=== PATIENT | female | born 1975 | race Hispanic/Latino ===

== ENCOUNTER 2017-10-12 21:57 | Emergency (ER) | payer SELFPAY ==
--- NOTE | 2017-10-12 22:41 | CT ---
CT OF THE BRAIN WITHOUT CONTRAST 10/12/17 COMPARISON: None. HISTORY: Headache and shortness of breath. TECHNIQUE: Multiple contiguous axial images were obtained in a CT of the brain without contrast. FINDINGS: The brain is normal in morphology and attenuation without focal lesions or confluent areas of infarct ion. There is no evidence of hydrocephalus, intracranial hemorrhage or extra-axial fluid collection. The calvarium and overlying soft tissues are unremarkable. The visualized paranasal sinuses and masto id air cells are well aerated. IMPRESSION: No evidence of acute intracranial abnormality. POS: [facility]
[2017-10-12 22:58] LABS: ALT (SGPT) 21 U/L (8-55); AST (SGOT) 16 U/L (5-34); Albumin 4.2 g/dL (3.5-5.0); Alkaline Phosphatase 97 U/L (40-150); Anion Gap 13 mmol/L (10-20); BUN (Urea Nitrogen) 11 mg/dL (7.0-18.7); Bilirubin, Total 0.3 mg/dL (0.2-1.2); Calc. Creatinine Clearance 0 mL/min (70-130); Calcium 9.3 mg/dL (7.8-10.44); Carbon Dioxide 24 mmol/L (22-29); Chloride 105 mmol/L (98-107); Estimated GFR-MDRD 77; Globulin 3.6 g/dL (2.4-3.5); Glucose 102 mg/dL (70-105); Potassium 3.7 mmol/L (3.5-5.1); Protein, Total 7.8 g/dL (6.0-8.3); Sodium 138 mmol/L (136-145)
[2017-10-12 23:08] LABS: CKMB 0.8 ng/mL (0-6.6); Troponin I Less than 0.010 ng/mL (< 0.028)
[2017-10-12 23:11] LABS: #Eosinphils 0.2 thou/uL (0.0-0.7); #Lymphocytes 2.2 thou/uL (1.20-3.40); #Monocytes 0.8 thou/uL (0.11-0.59); #Neutrophils 5.8 thou/uL (1.40-6.50); %Basophils 0.5 % (0.0-1.0); %Lymphocytes 23.9 % (21.0-51.0); %Monocytes 9.2 % (0.0-10.0); %Neutrophils 64.5 % (42.0-75.0); Hemoglobin 10.7 g/dL (12.0-16.0); MDiff Complete? YES; Mean Corpuscular HGB CONC 31.6 g/dL (32.0-36.0); Mean Corpuscular Hemoglobin 23.7 pg (27.0-31.0); Mean Platelet Volume 7.2 fL (7.4-10.4); Microcytosis SLIGHT = 6-15 cells (100X) (0-5/hpf); PLT Morphology Comment Appears Adequate; Platelet Count 339 thou/uL (130-400); RBC Distribution Width 15.4 % (11.5-14.5); Red Blood Cell (RBC) Count 4.51 mill/uL (4.20-5.40)
[2017-10-12] MEDS ORDERED: diphenhydrAMINE 50 MG/ML VIAL ONE (23:27)
[2017-10-12] MEDS ORDERED: Metoclopramide HCl 10 MG/2 ML VIAL ONE (23:27)
== END 2017-10-13 01:07 | disposition home or self-care (01) ==
LOC: ERS 21:57
DX: R51 Headache (principal); R20.2 Paresthesia of skin; F41.9 Anxiety disorder, unspecified
CPT/HCPCS: 36415; 70450; 80053; 82553; 84484; 85025; 93005; 96365; 96375; J1200; J2765

== ENCOUNTER 2020-04-21 22:28 | Emergency (ER) | payer SELFPAY ==
[2020-04-21 23:03] LABS: Bilirubin Negative (Negative); Blood, Urine Trace (Negative); Clarity Clear (Clear); Glucose, Urine (Dipstick) Normal (Negative); Ketone, Urine Negative (Negative); Leukocyte Negative Leu/uL (Negative); Nitrite Negative (Negative); Protein, Urine (Dipstick) Negative (Neg-Trace); RBC/HPF 0-3 HPF (0-3); Specific Gravity, Urine 1.018 (1.002-1.036); Urobilinogen Normal mg/dL (Less than 2); WBC/HPF 0-3 HPF (0-3)
[2020-04-21 23:05] LABS: Bacteria/HPF 1+ HPF (None Seen)
[2020-04-21 23:11] LABS: #Eosinphils 0.2 thou/uL (0.0-0.7); #Lymphocytes 2.1 thou/uL (1.20-3.40); #Monocytes 0.8 thou/uL (0.11-0.59); #Neutrophils 5.2 thou/uL (1.40-6.50); %Basophils 0.6 % (0.0-1.0); %Eosinophils 1.9 % (0.0-10.0); %Lymphocytes 25.4 % (21.0-51.0); %Monocytes 10.1 % (0.0-10.0); Hemoglobin 12.2 g/dL (12.0-16.0); Mean Corpuscular HGB CONC 32.5 g/dL (32.0-36.0); Mean Corpuscular Hemoglobin 28.3 pg (27.0-31.0); Mean Corpuscular Volume 87.2 fL (78.0-98.0); Mean Platelet Volume 7.5 fL (7.4-10.4); Platelet Count 305 thou/uL (130-400); White Blood Cell (WBC) Count 8.4 thou/uL (4.8-10.8)
[2020-04-21 23:27] LABS: ALT (SGPT) 16 U/L (8-55); AST (SGOT) 15 U/L (5-34); Albumin 4.1 g/dL (3.5-5.0); Alkaline Phosphatase 86 U/L (40-110); Anion Gap 13 mmol/L (10-20); BUN (Urea Nitrogen) 11 mg/dL (7.0-18.7); Bilirubin, Total 0.3 mg/dL (0.2-1.2); Calc. Creatinine Clearance 0 mL/min (70-130); Carbon Dioxide 23 mmol/L (22-29); Chloride 106 mmol/L (98-107); Glucose 105 mg/dL (70-105); Potassium 3.7 mmol/L (3.5-5.1); Protein, Total 7.1 g/dL (6.0-8.3); Sodium 138 mmol/L (136-145)
[2020-04-22] MEDS ORDERED: Metoclopramide 10 MG/10 ML UDCUP ONE (00:47)
[2020-04-22] MEDS ORDERED: diphenhydrAMINE 50 MG/ML VIAL ONE (00:47)
[2020-04-22] MEDS ORDERED: Metoclopramide HCl 10 MG/2 ML VIAL ONE (00:47)
--- NOTE | 2020-04-22 07:27 | CT ---
PRELIMINARY REPORT/[facility]/EMERGENCY AFTER HOURS PROCEDURE EXAM: CT Head Without Intravenous Contrast. CLINICAL HISTORY: Patient reports parathesia to the left head and hand starting at 4pm which resolved on its own before returning at 2100. Patient reports blood to the left eye. TECHNIQUE: Axial computed tomography images of the head/brain without intravenous contrast. COMPARISON: None provided. FINDINGS: BRAIN: No acute intraparenchymal hemorrhage. No mass lesion. No CT evidence for acute territorial infarct. N o midline shift or extra-axial collection. VENTRICLES: No hydrocephalus. ORBITS: The orbits are unremarkable. SINUSES AND MASTOIDS: The paranasal sinuses and mastoid air cells are clear. SOFT TISSUES: No significant facial or scalp soft tissue swelling evident. No radiopaque foreign body is seen. BONES: No acute skull fracture. IMPRESSION: No acute intracranial abnormality. ELECTRONICALLY SIGNED BY: Austen Pruitt MD Apr 22, 2020 1:39:21 AM [employer] REWINDER This report is intended for review by the ordering physician only, in accordance of law. If you recei ve this report in error, please call [facility] at [phone]. FINAL REPORT Final interpretation Head CT without contrast: 04/22/2020 COMPARISON: 10/12/2017 HISTORY: Left hand paresthesias, headache. FINDINGS: I agree with the preliminary report. Imaged paranasal sinuses and mastoid air cells are wel l-aerated. No acute osseous abnormality. No intracranial hemorrhage, midline shift, mass effect, or ventricular enlargement. IMPRESSION: No acute findings. Transcribed Date/Time: 04/22/2020 8:03 AM
== END 2020-04-22 02:24 | disposition home or self-care (01) ==
LOC: ERS 22:28
DX: R07.9 Chest pain, unspecified (principal); R51.9 Headache, unspecified; R20.2 Paresthesia of skin; H11.32 Conjunctival hemorrhage, left eye
CPT/HCPCS: 36415; 70450; 80053; 81003; 81015; 84484; 85025; 93005; 96365; 96375; J1200; J2765

== ENCOUNTER 2021-06-06 00:44 | Emergency (ER) | payer SELFPAY ==
[2021-06-06 01:46] LABS: #Basophils 0.1 thou/uL (0.0-0.2); #Eosinphils 0.3 thou/uL (0.0-0.7); #Lymphocytes 2.3 thou/uL (1.20-3.40); #Monocytes 0.7 thou/uL (0.11-0.59); #Neutrophils 4.8 thou/uL (1.40-6.50); %Basophils 0.7 % (0.0-1.0); %Eosinophils 3.4 % (0.0-10.0); %Lymphocytes 28.3 % (21.0-51.0); %Monocytes 8.9 % (0.0-10.0); %Neutrophils 58.7 % (42.0-75.0); Hemoglobin 12.2 g/dL (12.0-16.0); Mean Corpuscular HGB CONC 31.9 g/dL (32.0-36.0); Mean Corpuscular Hemoglobin 25.8 pg (27.0-31.0); Mean Corpuscular Volume 80.7 fL (78.0-98.0); Platelet Count 288 thou/uL (130-400); RBC Distribution Width 13.9 % (11.5-14.5); Red Blood Cell (RBC) Count 4.75 mill/uL (4.20-5.40); White Blood Cell (WBC) Count 8.1 thou/uL (4.8-10.8)
[2021-06-06 02:02] LABS: ALT (SGPT) 18 U/L (8-55); AST (SGOT) 17 U/L (5-34); Albumin 3.9 g/dL (3.5-5.0); Alkaline Phosphatase 86 U/L (40-110); Anion Gap 17 mmol/L (10-20); BUN (Urea Nitrogen) 16 mg/dL (7.0-18.7); Bilirubin, Total 0.2 mg/dL (0.2-1.2); Calc. Creatinine Clearance 0 mL/min (70-130); Calcium 9.2 mg/dL (7.8-10.44); Carbon Dioxide 16 mmol/L (22-29); Chloride 106 mmol/L (98-107); Globulin 3.7 g/dL (2.4-3.5); Glucose 114 mg/dL (70-105); Potassium 4.3 mmol/L (3.5-5.1); Protein, Total 7.6 g/dL (6.0-8.3); Sodium 135 mmol/L (136-145)
[2021-06-06] MEDS ORDERED: Ondansetron ODT 8 MG TAB ONE (02:16)
[2021-06-06] MEDS ORDERED: Meclizine HCl 25 MG TAB ONE (02:16)
== END 2021-06-06 03:26 | disposition home or self-care (01) ==
LOC: ERS 00:44
DX: H81.399 Other peripheral vertigo, unspecified ear (principal)
CPT/HCPCS: 36415; 80053; 85025; 93005; Q0162